=== PATIENT | male | born 1970 | race Caucasian/White ===

== ENCOUNTER 2019-03-14 10:53 | Inpatient (IN) | payer OTHER ==
[~2019-03-14] VITALS: Ht 182.9 cm; Wt 79.6 kg
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
[2019-03-14 12:10] VITALS: BP 134/86
--- NOTE | 2019-03-14 12:34 | NUR ---
PATIENT MEETS [facility]. CIWA=26. PATIENT WANTS TO FOLLOW UP WITH [facility] IN [place] FOR HIS AFTERCARE PLAN. DAVE SANDHU B.A. LANDSCAPE CREW MEMBER
[2019-03-14 14:11] LABS: BASO # 0.1 10*3/uL (0.0-0.1); BASO % 1.2 % (0.0-1.0); EOS # 0.2 10*3/uL (0.0-0.4); EOS % 1.6 % (1.0-4.0); HEMATOCRIT 48.4 % (42.0-52.0); HEMOGLOBIN 16.5 g/dl (14.0-18.0); LYMPH # 3.7 10*3/uL (1.3-4.4); LYMPH % 36.2 % (27.0-41.0); MEAN CELL VOLUME 92.5 fl (80.0-94.0); MEAN CORPUSCULAR HGB 31.5 pg (27.0-31.0); MEAN CORPUSCULAR HGB CONC 34.1 g/dl (33.0-37.0); MEAN PLATELET VOLUME 9.6 fl (9.6-12.3); MONO % 9.3 % (3.0-9.0); NEUT # 5.3 10*3/uL (2.3-7.9); NEUT % 51.6 % (47.0-73.0); PLATELET COUNT AUTOMATED 364 10*3/uL (130-400); RED BLOOD COUNT 5.23 10*6/uL (4.50-5.90); RED CELL DISTRI WIDTH 13.6 % (0-14.5); WHITE BLOOD COUNT 10.2 10*3/uL (4.8-10.8)
[2019-03-14 14:21] LABS: INTERNATIONAL NORM RATIO 0.9 (2.0-3.5)
[2019-03-14 14:26] LABS: ALBUMIN 3.7 gm/dl (3.1-4.5); ALKALINE PHOSPHATASE 49 U/L (45-117); BUN 7 mg/dl (7-24); CHLORIDE 106 mmol/L (98-107); CREATININE 0.84 mg/dL (0.70-1.30); POTASSIUM 4.3 mmol/L (3.5-5.1); SGOT/AST 17 IU/L (3-35); SGPT/ALT 28 U/L (12-78); SODIUM 143 mmol/L (136-145); TOTAL PROTEIN 7.3 gm/dL (6.4-8.2)
[2019-03-14 16:00] VITALS: BP 127/79
--- NOTE | 2019-03-14 19:06 | NUR ---
24 HR chart check completed.
[2019-03-14 20:00] VITALS: BP 93/60
--- NOTE | 2019-03-14 21:35 | NUR ---
ENTERED PT'S ROOM AND SMELLED SMOKE. ASKED PT IF HE HAD SMOKED IN THE ROOM AND THAT IT SMELLED OF SMOKE. PATIENT DENIED AND STATED THAT HE DID NOT BRING CIGARETTES. EDUCATION WAS PROVIDED ON THE IMPORTANCE OF NOT SMOKING IN A HOSPITAL DUE TO SAFETY ISSUES AND REINFORCED [facility] AND REMINDED HIM THAT IF HE WERE AND IF WE CAUGHT HIM THEN WE WOULD BE DISCHARGED PER POLICY. WILL CONTINUE TO MONITOR PATIENT.
[2019-03-15] VITALS: BP 127/78
[2019-03-15 04:00] VITALS: BP 109/79
--- NOTE | 2019-03-15 05:16 | NUR ---
PT HAD A CLOSET BUILDER SITTING ON THE BEDSIDE TABLE. I ASKED IF WE COULD LOCK THAT UP IN THE WALL FOR SAFETY REASONS. PT WAS AGREEABLE AND STATED HE UNDERSTOOD. CLOSET BUILDER IS CURRENTLY LOCKED UP IN THE WALL.
[2019-03-15 05:57] LABS: BILIRUBIN NEGATIVE (NEGATIVE); BLOOD NEGATIVE (NEGATIVE); CLARITY CLEAR (CLEAR); COLOR YELLOW (YELLOW); GLUCOSE NEGATIVE (NEGATIVE); KETONE TRACE (NEGATIVE); LEUKO ESTERASE NEGATIVE (NEGATIVE); NITRITE NEGATIVE (NEGATIVE); PH 7.5 (5.0-9.0); SPECIFIC GRAVITY 1.015 (1.005-1.030)
[2019-03-15 06:04] LABS: EPITHELIAL CELLS 0-2; RBC 0-2 rbc/hpf (0-2); WBC 0-2 wbc/hpf (0-5)
[2019-03-15 06:05] LABS: BACTERIA TRACE; MUCOUS 1+
[2019-03-15 06:06] LABS: URINE AMPHETAMINES < 1000 (1000ng/ml); URINE BARBITURATES < 200 (200ng/ml); URINE BENZODIAZEPINES > 200 (200ng/ml); URINE CANNABINOIDS (THC) > 50 (50ng/ml); URINE COCAINE < 300 (300ng/ml); URINE METHADONE < 300 (300ng/ml); URINE OPIATES < 300 (300ng/ml); URINE PHENCYCLIDINE < 25 (25ng/ml)
--- NOTE | 2019-03-15 07:39 | NUR ---
Shift chart check completed.
[2019-03-15 08:00] VITALS: BP 142/88
--- NOTE | 2019-03-15 08:38 | NUR ---
Patient displaying withdrawal symptoms, including: anxiousness, restlessness, AND TREMORS VISIBLE, PER PT WHEN DISCUSSING ANXIETY HE SAYS IT IS ALL UP HERE & POINTS TO HEAD. Patient scores a 9 on the CIWA withdrawal scale. Scheduled/PRN medications (LIBRIUM, VISTARIL & ROBAXIN) provided, Will continue to monitor medication effectiveness. PATIENT RECEPTIVE TO BEING GIVEN NUMBERS FOR COUNSELING CENTER & DR DON FOR DC FOLLOW UP
--- NOTE | 2019-03-15 10:38 | NUR ---
NICOTROL INHALER GIVEN & HOW TO USE IT EXPLAINED. PT VOICED UNDERSTANDING Rosita PEREIRA CNP CALLED TO LET HER KNOW THE PATIENT WAS AWAKE & C/O CHILLS, SEVERE ANXIETY, NAUSEA, TREMORS & ON EDGE. WILL MEDICATE ONCE SEEN
--- NOTE | 2019-03-15 11:05 | NUR ---
IV ATIVAN, PO ZOFRAN & TYLENOL GIVEN FOR C/O AFTER SEEN BY Rosita PEREIRA.
[2019-03-15 12:00] VITALS: BP 132/79
--- NOTE | 2019-03-15 13:30 | NUR ---
STAT ATIVAN GIVEN DESPITE EYES CLOSED AND PEACEFUL UPON ENTERING ROOM & CODE STATUS CHANGED TO DNRCC PER PT REQUSET. NICOTROL INHALER EFFECTIVE.
--- NOTE | 2019-03-15 14:00 | NUR ---
SLEEPING AFTER STAT ATIVAN GIVEN. Patient resting. Responding to scheduled medications with fewer complaints of pain and anxiety.
--- NOTE | 2019-03-15 15:56 | NUR ---
PATIENT MEDICATED WITH ROBAXIN & VISTARIL PRN & ROUTINE LIBRIUM,. PATIENT SAYS HE IS FEELING BETTER AND ABLE TO ACTUALLY SLEEP SINCE LAST ATIVAN WAS GIVEN.
[2019-03-15 16:00] VITALS: BP 117/80
--- NOTE | 2019-03-15 17:46 | NUR ---
SLEEPING SINCE MEDICATED
--- NOTE | 2019-03-15 18:22 | NUR ---
SLEEPING SOUNDLY - RESP EASY & NONLABORED
[2019-03-15 20:00] VITALS: BP 120/82
[2019-03-16] VITALS: BP 122/81
--- NOTE | 2019-03-16 02:22 | NUR ---
24 HR. CHART CHECK COMPLETE.
--- NOTE | 2019-03-16 07:05 | NUR ---
24 HR chart check completed.
--- NOTE | 2019-03-16 07:55 | NUR ---
ABRAM NOVA, VISTARIL, ZOFRAN GIVEN. PT STATES HE IS VERY ANXIOUS, RESTLESS AND STATES THAT HE FEELS LIKE SOMETHING IS CRAWLING ALL OVER HIM. WILL REASSESS EFFECTIVENESS.
[2019-03-16 08:04] VITALS: BP 118/68
--- NOTE | 2019-03-16 08:59 | NUR ---
PT IS CURRENTLY SLEEPING. PT SHOWS NO SIGNS OF DISTRESS AND IS RESTING COMFORTABLY. WILL MONITOR PT'S STATUS.
[2019-03-16 12:00] VITALS: BP 139/98
--- NOTE | 2019-03-16 12:26 | NUR ---
INSOLE BOTTOM FILLER CAME TO DESK AND STATED THAT THE PATIENT IS SAYING HE CAN NOT TAKE IT ANYMORE. HE STATED THAT HE FEELS LIKE SOMETHING IS CRAWLING ALL OVER HIM AND NEEDS SOMETHING. PRN IV ATIVAN WAS GIVEN. WILL REASSESS EFFECTIVENESS.
--- NOTE | 2019-03-16 13:00 | NUR ---
PT IS CURRENTLY SLEEPING WITH NO SIGNS OF DISTRESS. MEDICATION WAS EFFECTIVE. WILL CONTINUE TO MONITOR PT.
--- NOTE | 2019-03-16 14:38 | NUR ---
ATTEMPTED TO PLACE CONSULT OUT FOR DR. FERREIRA ANSWERING SERVICE KEPT SENDING ME TO THE ORTHOPEDICS OFFICE. CALLED CELL NUMBER VIA [employer] AND LEFT A MESSAGE W/ CALL BACK NUMBER. AWAITING A CALL TO FINISH THE CONSULT.
[2019-03-16 16:00] VITALS: BP 124/91
--- NOTE | 2019-03-16 19:15 | NUR ---
ARRIVED ON SHIFT, INTRODUCED TO PATIENT, BEDSIDE REPORT RECEIVED, NO NEEDS VOICED AT THIS TIME, WHITE BOARD UPDATED.
[2019-03-16 20:00] VITALS: BP 129/88
--- NOTE | 2019-03-16 21:01 | NUR ---
24 HR chart check completed.
--- NOTE | 2019-03-16 23:33 | NUR ---
PATIENT C/O OF INCREASED ANXIETY AND MUSCLE PAIN, WELL INCREASED SWEATING, MEDICATED WITH ROBAXIN AND VISTRAL ORDERED.
[2019-03-17] VITALS: BP 123/74
--- NOTE | 2019-03-17 01:00 | NUR ---
PATIENT RESTING QUIETLY WITH EYES CLOSED RESPIRATIONS EASY AND NON LABORED, GOOD EFFECT FROM ATIVAN GIVEN X 1 HOUR AGO,
--- NOTE | 2019-03-17 04:30 | NUR ---
Patient sleeping. Respirations relaxed and easy. Siderails up 2. [place] on. MEGAN KILPATRICK
--- NOTE | 2019-03-17 04:57 | NUR ---
Patient sleeping. Respirations relaxed and easy. Siderails up 2. [place] on. MEGAN KILPATRICK
[2019-03-17 08:00] VITALS: BP 124/78
--- NOTE | 2019-03-17 11:33 | NUR ---
DR. FERREIRA IN TO SEE PATIENT RE: PLAN OF CARE.
--- NOTE | 2019-03-17 11:42 | NUR ---
PATIENT IS SCHEDULED TO FOLLOW UP WITH [facility] IN [place] ON SUNDAY, AT NOON. PATIENT ALSO RE[facility] ON [facility]. [place] STAFF ALSO PROVIDED PATIENT WITH [facility]CT NUMBER TO THE [facility] [place]. [place] STAFF MADE PATIENT AWARE THAT HE CAN SET UP TRANSPORTATION THROUGH HIS INSURANCE FOR HIS UPCOMING APPOINTMENT. PATIENT AGREES AND UNDERSTANDS HIS AFTERCARE PLAN. DAVE SANDHU B.A. MASTER CONTROL SUPERVISOR
[2019-03-17] MEDS ORDERED: ZOLOFT25 MG PO (12:37)
--- NOTE | 2019-03-17 13:07 | NUR ---
Spoke to Reema at [facility], , regarding scheduling follow up appt. Follow up scheduled for Wednesday 03/21 at 10:45 am. Nurse, Tushar, and Ashu Dumont, notified.
--- NOTE | 2019-03-17 13:08 | NUR ---
Discharge instructions reviewed with patient. Patient receptive and verbalizes understanding. Follow-up care arranged. Written instructions given to patient/family. GORAN SKY
--- NOTE | 2019-03-17 13:14 | NUR ---
Faxed discharge clinical to Reema at [facility],
== END 2019-03-17 13:30 | disposition home or self-care (01) | DRG 897 ==
LOC: 5E 10:53
PROVIDERS: Registered Nurse; ADMIT Internal Medicine
DX: F10.929 Alcohol use, unspecified with intoxication, unspecified (principal); F43.10 Post-traumatic stress disorder, unspecified; F41.9 Anxiety disorder, unspecified; Z66 Do not resuscitate; Z51.5 Encounter for palliative care; Z90.81 Acquired absence of spleen; Z87.891 Personal history of nicotine dependence; Z79.899 Other long term (current) drug therapy

== ENCOUNTER 2019-07-12 18:28 | Emergency (ER) | payer OTHER ==
[~2019-07-12] VITALS: Wt 77.1 kg
[~2019-07-12 18:28] MED LIST: ZOLOFT25 MG PO
[2019-07-12 19:21] LABS: BASO # 0.1 10*3/uL (0.0-0.1); BASO % 1.1 % (0.0-1.0); EOS # 0.2 10*3/uL (0.0-0.4); EOS % 1.8 % (1.0-4.0); HEMATOCRIT 50.8 % (42.0-52.0); HEMOGLOBIN 17.3 g/dl (14.0-18.0); LYMPH # 4.7 10*3/uL (1.3-4.4); LYMPH % 44.9 % (27.0-41.0); MEAN CELL VOLUME 90.7 fl (80.0-94.0); MEAN CORPUSCULAR HGB 30.9 pg (27.0-31.0); MEAN CORPUSCULAR HGB CONC 34.1 g/dl (33.0-37.0); MEAN PLATELET VOLUME 9.5 fl (9.6-12.3); MONO # 0.7 10*3/uL (0.1-1.0); MONO % 6.4 % (3.0-9.0); NEUT # 4.8 10*3/uL (2.3-7.9); NEUT % 45.5 % (47.0-73.0); PLATELET COUNT AUTOMATED 391 10*3/uL (130-400); RED CELL DISTRI WIDTH 13.4 % (0-14.5); WHITE BLOOD COUNT 10.5 10*3/uL (4.8-10.8)
[2019-07-12 19:38] LABS: ALBUMIN 4.1 gm/dl (3.1-4.5); ALKALINE PHOSPHATASE 60 U/L (45-117); BUN 7 mg/dl (7-24); CHLORIDE 111 mmol/L (98-107); CREATININE 0.79 mg/dL (0.70-1.30); POTASSIUM 3.5 mmol/L (3.5-5.1); SGOT/AST 22 IU/L (3-35); SGPT/ALT 37 U/L (12-78); SODIUM 145 mmol/L (136-145); TOTAL PROTEIN 8.3 gm/dL (6.4-8.2)
[2019-07-12 19:58] LABS: ACETAMINOPHEN (TYLENOL) < 5.0 ug/ml (10-30)
== END 2019-07-13 05:35 | disposition home or self-care (01) ==
LOC: ED 18:28
PROVIDERS: Nurse Practitioner Family
DX: F10.920 Alcohol use, unspecified with intoxication, uncomplicated (principal); F17.200 Nicotine dependence, unspecified, uncomplicated; Z79.899 Other long term (current) drug therapy; Y90.8 Blood alcohol level of 240 mg/100 ml or more

== ENCOUNTER 2020-02-03 08:44 | Emergency (ER) | payer OTHER ==
[~2020-02-03] VITALS: Ht 182.8 cm; Wt 78.5 kg
== END 2020-02-03 10:05 | disposition home or self-care (01) ==
LOC: ED 08:44
DX: G43.909 Migraine, unspecified, not intractable, without status migrainosus (principal); F17.200 Nicotine dependence, unspecified, uncomplicated; Z79.899 Other long term (current) drug therapy

== ENCOUNTER 2021-09-09 18:33 | Inpatient (IN) | payer OTHER ==
[~2021-09-09] VITALS: Ht 182.8 cm; Wt 65.8 kg
[2021-09-09 18:58] VITALS: BP 138/97
[2021-09-09 20:02] LABS: BASO % 0.2 % (0.0-1.0); HEMATOCRIT 52.3 % (42.0-52.0); LYMPH # 1.5 10*3/uL (1.3-4.4); LYMPH % 8.3 % (27.0-41.0); MEAN PLATELET VOLUME 9.2 fl (9.6-12.3); MONO # 1.2 10*3/uL (0.1-1.0); MONO % 7.1 % (3.0-9.0); NEUT # 14.6 10*3/uL (2.3-7.9); NEUT % 84.1 % (47.0-73.0); PLATELET COUNT AUTOMATED 520 10*3/uL (130-400); RED BLOOD COUNT 5.75 10*6/uL (4.50-5.90); RED CELL DISTRI WIDTH 14.6 % (0-14.5); WHITE BLOOD COUNT 17.4 10*3/uL (4.8-10.8)
[2021-09-09 20:22] LABS: ALKALINE PHOSPHATASE 66 U/L (45-117); BUN 18 mg/dl (7-24); CHLORIDE 97 mmol/L (98-107); CREATININE 1.16 mg/dL (0.70-1.30); LIPASE 56 U/L (73-393); SGOT/AST 17 IU/L (3-35); SGPT/ALT 27 U/L (12-78); SODIUM 136 mmol/L (136-145)
[2021-09-09 20:23] LABS: POTASSIUM 4.5 mmol/L (3.5-5.1)
[2021-09-10] VITALS (9 sets, daily range): BP systolic 108–137; BP diastolic 76–98
[2021-09-11] VITALS: BP 143/80
[2021-09-11 06:22] LABS: BASO # 0.1 10*3/uL (0.0-0.1); BASO % 0.4 % (0.0-1.0); EOS % 0.3 % (1.0-4.0); HEMATOCRIT 45.8 % (42.0-52.0); LYMPH # 1.9 10*3/uL (1.3-4.4); LYMPH % 12.8 % (27.0-41.0); MEAN CELL VOLUME 92.5 fl (80.0-94.0); MEAN CORPUSCULAR HGB 31.1 pg (27.0-31.0); MEAN CORPUSCULAR HGB CONC 33.6 g/dl (33.0-37.0); MEAN PLATELET VOLUME 9.6 fl (9.6-12.3); MONO # 0.8 10*3/uL (0.1-1.0); MONO % 5.3 % (3.0-9.0); NEUT # 11.8 10*3/uL (2.3-7.9); NEUT % 80.6 % (47.0-73.0); PLATELET COUNT AUTOMATED 424 10*3/uL (130-400); RED BLOOD COUNT 4.95 10*6/uL (4.50-5.90); RED CELL DISTRI WIDTH 14.1 % (0-14.5); WHITE BLOOD COUNT 14.6 10*3/uL (4.8-10.8)
[2021-09-11 06:36] LABS: BUN 17 mg/dl (7-24); CHLORIDE 104 mmol/L (98-107); CHOLESTEROL 172 mg/dL (<200); CREATININE 0.87 mg/dL (0.70-1.30); FREE T4 0.96 ng/dl (0.76-1.46); LDL CHOLESTEROL 104 mg/dL (9-159); POTASSIUM 4.1 mmol/L (3.5-5.1); SODIUM 139 mmol/L (136-145); TRIGLYCERIDES 91 mg/dl (<150)
[2021-09-11 07:54] LABS: VITAMIN D, 25-HYDROXY 11.9 ng/mL (30-100)
[2021-09-11 08:00] VITALS: BP 126/82
[2021-09-11 12:00] VITALS: BP 133/93
[2021-09-11 16:00] VITALS: BP 140/78
[2021-09-11 20:00] VITALS: BP 140/88; BP 140/97
[2021-09-12] VITALS: BP 141/92
[2021-09-12 06:25] LABS: BUN 15 mg/dl (7-24); CHLORIDE 104 mmol/L (98-107); CREATININE 0.79 mg/dL (0.70-1.30); POTASSIUM 3.9 mmol/L (3.5-5.1); SODIUM 136 mmol/L (136-145)
[2021-09-12 06:45] LABS: BASO # 0.1 10*3/uL (0.0-0.1); BASO % 0.6 % (0.0-1.0); EOS # 0.1 10*3/uL (0.0-0.4); EOS % 1.3 % (1.0-4.0); HEMATOCRIT 44.9 % (42.0-52.0); LYMPH # 2.3 10*3/uL (1.3-4.4); MEAN CELL VOLUME 92.2 fl (80.0-94.0); MEAN CORPUSCULAR HGB 31.2 pg (27.0-31.0); MEAN CORPUSCULAR HGB CONC 33.9 g/dl (33.0-37.0); MEAN PLATELET VOLUME 9.6 fl (9.6-12.3); MONO # 0.9 10*3/uL (0.1-1.0); MONO % 8.4 % (3.0-9.0); NEUT # 7.4 10*3/uL (2.3-7.9); NEUT % 68.5 % (47.0-73.0); PLATELET COUNT AUTOMATED 408 10*3/uL (130-400); RED BLOOD COUNT 4.87 10*6/uL (4.50-5.90); RED CELL DISTRI WIDTH 13.5 % (0-14.5); WHITE BLOOD COUNT 10.8 10*3/uL (4.8-10.8)
[2021-09-12 08:00] VITALS: BP 136/91
[2021-09-12 12:31] VITALS: BP 182/96
[2021-09-12 16:00] VITALS: BP 149/86
[2021-09-12 20:00] VITALS: BP 131/72
[2021-09-13] VITALS: BP 134/85
[2021-09-13 08:00] VITALS: BP 141/95
== END 2021-09-13 11:12 | disposition home or self-care (01) | DRG 247 ==
LOC: ED 18:33 → EDHOLD 09-10 05:04 → 5E 09-10 05:04
PROVIDERS: Emergency Medicine; Registered Nurse; Student in an Organized Health Care Education/Training Program; ADMIT Internal Medicine; ATTEND Internal Medicine
PROC: 0D9670Z Drainage of Stomach with Drainage Device, Via Natural or Artificial Opening (ICD-10-PCS; principal; 2021-09-10)
DX: K56.609 Unspecified intestinal obstruction, unspecified as to partial versus complete obstruction (principal); R65.10 Systemic inflammatory response syndrome (SIRS) of non-infectious origin without acute organ dysfunction; D75.839 Thrombocytosis, unspecified; E87.8 Other disorders of electrolyte and fluid balance, not elsewhere classified; R73.9 Hyperglycemia, unspecified; F43.10 Post-traumatic stress disorder, unspecified; G43.909 Migraine, unspecified, not intractable, without status migrainosus

== ENCOUNTER 2023-07-02 20:58 | Emergency (ER) | payer SELFPAY | END 2023-07-02 22:26 | disposition short-term general hospital (02) | LOC: ED 20:58 | DX: S31.119A Laceration without foreign body of abdominal wall, unspecified quadrant without penetration into peritoneal cavity, initial encounter (principal); Z98.890 Other specified postprocedural states; F10.10 Alcohol abuse, uncomplicated; F17.200 Nicotine dependence, unspecified, uncomplicated; F12.90 Cannabis use, unspecified, uncomplicated; W26.8XXA Contact with other sharp object(s), not elsewhere classified, initial encounter; Y93.89 Activity, other specified; Y92.89 Other specified places as the place of occurrence of the external cause; Y99.8 Other external cause status ==